=== PATIENT | female | born 2000 | race Caucasian/White ===

== ENCOUNTER 2021-04-14 19:44 | Emergency (ER) | payer BC ==
[2021-04-14] MEDS ORDERED: LIDOCAINE 2.5%/PRILOCAINE 2.5% (5 Gram/TUBE) TP ONE (21:12)
[2021-04-14 21:39] VITALS: BP 114/66; PULSE 86; TEMP 98.9; BMI 31.5
[2021-04-14] MEDS ORDERED: LIDO 2%/EPI 1:200000 PRESRVFRE (20 ML SDVIAL) ONE (21:43)
== END 2021-04-14 22:22 | disposition home or self-care (01) ==
LOC: FER 19:44
PROC: 0HQ1XZZ Repair Face Skin, External Approach (ICD-10-PCS; principal; 2021-04-14)
DX: S01.81XA Laceration without foreign body of other part of head, initial encounter (principal)
CPT/HCPCS: 99282-25